=== PATIENT | female | born 1985 | race American Indian/Alaskan Native ===

== ENCOUNTER 2017-06-12 16:03 | Emergency (ER) | payer OTHER ==
[2017-06-12 16:32] LABS: Basophils % (Auto) 0.2 % (0.0-1.8); Eosinophils % (Auto) 1.2 % (0.0-4.3); Hematocrit 37.9 % (30.3-42.9); Hemoglobin 12.6 gm/dl (10.1-14.3); Mean Corpuscular HGB Conc 33 % (30-34); Mean Corpuscular Hemoglobin 29 pg (28-32); Mean Corpuscular Volume 88 fl (79-97); Platelet Count 226 K/mm3 (140-440); Red Blood Count 4.29 M/mm3 (3.65-5.03); Red Cell Distribution Width 16.3 % (13.2-15.2); White Blood Count 5.7 K/mm3 (4.5-11.0)
[2017-06-12 16:48] LABS: Alanine Aminotransferase 23 units/L (7-56); Albumin/Globulin Ratio 1.3 %; Alkaline Phosphatase 66 units/L (35-129); Anion Gap 17 mmol/L; BUN/Creatinine Ratio 12; Blood Urea Nitrogen 7 mg/dL (7-17); Calcium 8.7 mg/dL (8.4-10.2); Carbon Dioxide 27 mmol/L (22-30); Chloride 102.2 mmol/L (98-107); Glucose 102 mg/dL (65-100); Lipase 40 units/L (13-60); Potassium 3.8 mmol/L (3.6-5.0); Sodium 142 mmol/L (137-145); Total Protein 7.1 g/dL (6.3-8.2)
[2017-06-12 17:01] LABS: Bacteria,Urine 1+ /HPF (Negative); Bilirubin,Urine NEG (Negative); Blood,Urine MOD (Negative); Ketones,Urine NEG (Negative); Leukocyte Esterase,Urine LG (Negative); Mucus,Urine 3+ /HPF; Nitrite,Urine NEG (Negative)
[2017-06-13] MEDS ORDERED: REGLAN IV ONE (01:03)
[2017-06-13] MEDS ORDERED: NACL 0.9% 1000 ML 1,000 ML IV ONE (01:03)
[2017-06-13] MEDS ORDERED: FIORICET PO ONE (01:04)
--- NOTE | 2017-06-13 01:04 | Emergency Department Report ---
ED Abdominal Pain HPI - General Chief Complaint: Headache Stated Complaint: HEADACHE Time Seen by Provider: 06/13/17 00:28 Source: patient Mode of arrival: Ambulatory Limitations: No Limitations - History of Present Illness Initial Comments: 32-year-old female presents here with complaints of headaches 2 days. Headaches are worse in the morning upon awakening. They get worse when she lays supine. Associated blurred vision and nausea with vomiting. Patient also recalls having right lower quadrant pain. This has been going on for 2 weeks on and off. Her last normal menses was in 2016. Patient denies diarrhea , no cough,no runny nose, no fever MD Complaint: abdominal pain (right lower quadrant) -: Gradual, week(s) (2 weeks, on and off) Location: RLQ Radiation: none Migration to: no migration Severity scale (0 -10): 8 Quality: stabbing, sharp Consistency: intermittent Improves With: nothing Worsens With: nothing Associated Symptoms: nausea, vomiting, other (right-sided headaches. Headaches radiate to back of her neck right side). denies: diarrhea, fever, chills, constipation, dysuria, hematemesis, hematochezia, anorexia, syncope - Related Data Previous Rx's Medication Instructions Recorded Last Taken Type Amoxicillin/K Clav Tab [Augmentin 1 tab PO Q12HR #20 tab 06/13/17 Unknown Rx 875 mg] Butalb/Acetamin/Caff 50-325-40 2 tab PO Q6HR PRN #30 tab 06/13/17 Unknown Rx [Fioricet] Lactulose [Cephulac] 20 gm PO Q6HR #1 bottle 06/13/17 Unknown Rx Ondansetron [Zofran TAB] 4 mg PO Q8HR PRN #20 tablet 06/13/17 Unknown Rx Allergies Allergy/AdvReac Type Severity Reaction Status Date / Time No Known Allergies Allergy Verified 02/25/16 12:14 ED Review of Systems ROS: Stated complaint: HEADACHE Other details as noted in HPI Comment: All other systems reviewed and negative Constitutional: see HPI, malaise, weakness. denies: chills, diaphoresis, fever Eyes: vision change (blurred vision). denies: eye discharge ENT: denies: throat pain, dental pain, hearing loss, epistaxis Respiratory: denies: cough, orthopnea, shortness of breath, SOB with exertion, SOB at rest Cardiovascular: denies: chest pain, palpitations, dyspnea on exertion, edema, syncope Endocrine: no symptoms reported Gastrointestinal: abdominal pain (right lower quadrant abdominal pain), nausea, vomiting, constipation. denies: diarrhea, hematemesis, melena Genitourinary: denies: dysuria, frequency, hematuria Musculoskeletal: back pain. denies: joint swelling, arthralgia, myalgia Skin: denies: change in color, change in hair/nails, pruritus Neurological: headache, weakness. denies: numbness ED Past Medical Hx - Past Medical History Previous Medical History?: No - Surgical History Past Surgical History?: No - Social History Smoking Status: Never Smoker Substance Use Type: Alcohol - Medications Home Medications: Home Medications Medication Instructions Recorded Confirmed Last Taken Type Amoxicillin/K Clav Tab [Augmentin 1 tab PO Q12HR #20 tab 06/13/17 Unknown Rx 875 mg] Butalb/Acetamin/Caff 50-325-40 2 tab PO Q6HR PRN #30 tab 06/13/17 Unknown Rx [Fioricet] Lactulose [Cephulac] 20 gm PO Q6HR #1 bottle 06/13/17 Unknown Rx Ondansetron [Zofran TAB] 4 mg PO Q8HR PRN #20 tablet 06/13/17 Unknown Rx ED Physical Exam - General Limitations: No Limitations General appearance: alert, in distress ([id number] distress), other ( obese patient) - Head Head exam: Present: atraumatic, normocephalic, normal inspection - Eye Eye exam: Present: normal appearance, PERRL, EOMI. Absent: scleral icterus, conjunctival injection, nystagmus - ENT ENT exam: Present: normal exam, normal orophraynx, mucous membranes moist - Neck Neck exam: Present: normal inspection, full ROM. Absent: tenderness, meningismus, lymphadenopathy - Respiratory Respiratory exam: Present: normal lung sounds bilaterally. Absent: respiratory distress, wheezes, rales, chest wall tenderness, accessory muscle use, decreased breath sounds - Cardiovascular Cardiovascular Exam: Present: normal rhythm, tachycardia, normal heart sounds - GI/Abdominal GI/Abdominal exam: Present: soft, tenderness (right lower quadrant), guarding ( right lower quadrant), diminished bowel sounds. Absent: rebound, rigid, normal bowel sounds, hyperactive bowel sounds, hypoactive bowel sounds, organomegaly, mass, bruit, pulsatile mass - Rectal Rectal exam: Present: deferred - Extremities Exam Extremities exam: Present: normal inspection, full ROM, normal capillary refill. Absent: tenderness, pedal edema - Back Exam Back exam: Present: normal inspection, full ROM. Absent: CVA tenderness (L) - Neurological Exam Neurological exam: Present: alert, oriented X3, CN II-XII intact, motor sensory deficit ED Course Vital Signs 06/12/17 06/13/17 06/13/17 16:10 00:44 00:54 Temperature 98.4 F 98.5 F Pulse Rate 108 H 91 H Respiratory 16 20 20 Rate Blood Pressure 189/134 Blood Pressure 154/100 [Right] O2 Sat by Pulse 99 100 100 Oximetry 06/13/17 06/13/17 06/13/17 02:06 03:00 03:06 Temperature Pulse Rate 88 Respiratory 20 20 20 Rate Blood Pressure Blood Pressure 141/93 [Right] O2 Sat by Pulse 100 Oximetry ED Medical Decision Making - Lab Data Result diagrams: 06/12/17 16:19 06/12/17 16:19 - Radiology Data Radiology results: report reviewed, image reviewed Critical Care Time: No Critical care attestation.: If time is entered above; I have spent that time in minutes in the direct care of this critically ill patient, excluding procedure time. ED Disposition Clinical Impression: Hypertension, Urinary tract infection, Migraine headache, Constipation Disposition: - TO HOME OR SELFCARE Is pt being admited?: No Does the pt Need Aspirin: No Condition: Stable Instructions: Hypertension (ED), Urinary Tract Infection in Women (ED), Migraine Headache (ED) Additional Instructions: Follow with her primary care or return to ER if your problem gets worse. Less solids diet, comply with instructions and medications. Follow-up with your scheduled appointment to see your primary care in 1 week, for reevaluation of you blood pressure. Prescriptions: Amoxicillin/K Clav Tab [Augmentin 875 mg] 1 tab PO Q12HR #20 tab Butalb/Acetamin/Caff 50-325-40 [Fioricet] 2 tab PO Q6HR PRN #30 tab PRN Reason: Headache Lactulose [Cephulac] 20 gm PO Q6HR #1 bottle Ondansetron [Zofran TAB] 4 mg PO Q8HR PRN #20 tablet PRN Reason: Nausea Referrals: PRIMARY CARE, [Primary Care Provider] - 3-5 Days Time of Disposition: 05:48
[2017-06-13 02:07] LABS: Magnesium 1.9 mg/dL (1.7-2.3)
[2017-06-13] MEDS ORDERED: ROCEPHIN/NS 1 GM/50 ML 1 GM/50 ML BAG IV ONE (02:50)
[2017-06-13] MEDS ORDERED: NACL ONE (02:50)
--- NOTE | 2017-06-13 03:29 | Cat Scan Report ---
FINAL REPORT PROCEDURE: CT HEAD/BRAIN WO CON TECHNIQUE: Computerized tomography of the head was performed without contrast material. HISTORY: Headaches COMPARISON: No prior studies are available for comparison. FINDINGS: Skull and scalp: Normal. Paranasal sinuses: Normal. Ventricles and subarachnoid spaces: Normal. Cerebrum: No evidence of hemorrhage, acute infarction or mass . Cerebellum and brainstem: No evidence of hemorrhage, acute infarction or mass. Vasculature: Normal. Comments: None. IMPRESSION: Normal Examination
--- NOTE | 2017-06-13 03:36 | Cat Scan Report ---
FINAL REPORT PROCEDURE: CT ABDOMEN PELVIS W CON TECHNIQUE: Computerized axial tomography of the abdomen and pelvis was performed after the IV injection of iodinated nonionic contrast. HISTORY: RLQ pain COMPARISON: No prior studies are available for comparison. FINDINGS: Visualized lower thorax: No significant abnormality. Liver: Normal size and attenuation. Spleen: Normal size and attenuation. Gallbladder and biliary system: Normal. Pancreas: Normal. Adrenals: Normal. Kidneys: Normal. GI tract: Normal. Lymph nodes and mesentery: Normal. Vasculature: Normal. Bladder: Normal. Reproductive organs: Normal. Peritoneum: No free fluid. Musculoskeletal structures: No significant abnormality. Other: None. IMPRESSION: There is no appendicitis. The appendix is normal. Uterus and ovaries are unremarkable. There is no ascites, free air, abscess or adenopathy. There are no kidney stones. There are no ureteral stones. There is no hydronephrosis.
[2017-06-13 06:46] VITALS: BP 144/91
== END 2017-06-13 06:51 | disposition home or self-care (01) ==
LOC: ED 16:03
DX: I10 Essential (primary) hypertension (principal); G43.909 Migraine, unspecified, not intractable, without status migrainosus; N39.0 Urinary tract infection, site not specified; K59.00 Constipation, unspecified
CPT/HCPCS: 36415; 70450; 74177; 80053; 81001; 81025; 83690; 83735; 85025; 93005; 93010; 96361; 96365; 96366; 96375; 99284; J0696; J2765; J7030; Q9967

== ENCOUNTER 2018-02-12 13:29 | Emergency (ER) | payer SELFPAY ==
[2018-02-12] MEDS ORDERED: ULTRAM PO ONE (13:57)
--- NOTE | 2018-02-12 14:10 | Emergency Department Report ---
ED Lower Extremity HPI - General Chief Complaint: Fall Stated Complaint: LEG/KNEE PAIN FROM FALL Time Seen by Provider: 02/12/18 13:50 Source: patient Mode of arrival: Wheelchair Limitations: No Limitations - History of Present Illness Initial Comments: Patient 32-year-old female who presents for left knee plain states she fell [employer] last night time and up patient is afebrile her parents for last night now unable to bear weight states 810 left medial knee pain pain exacerbated by weightbearing pain relieved by offloading associated tingling swelling. there is no relieving factor MD Complaint: knee injury Onset/Timin -: days(s) Injury: Knee: Left Type of Injury: other (twisted ) Place: other Severity: moderate Severity scale (0 -10): 8 Improves With: nothing Worsens With: weight bearing, movement, palpation Context: fall, other (twisting ) Associated Symptoms: swelling, unable to bear weight - Related Data Previous Rx's Medication Instructions Recorded Last Taken Type Amoxicillin/K Clav Tab [Augmentin 1 tab PO Q12HR #20 tab 06/13/17 Unknown Rx 875 mg] Butalb/Acetamin/Caff 50-325-40 2 tab PO Q6HR PRN #30 tab 06/13/17 Unknown Rx [Fioricet] Lactulose [Cephulac] 20 gm PO Q6HR #1 bottle 06/13/17 Unknown Rx Ondansetron [Zofran TAB] 4 mg PO Q8HR PRN #20 tablet 06/13/17 Unknown Rx Cyclobenzaprine [Flexeril] 10 mg PO TID PRN #30 tablet 02/12/18 Unknown Rx Naproxen 500 mg PO BID #30 tablet 02/12/18 Unknown Rx Allergies Allergy/AdvReac Type Severity Reaction Status Date / Time No Known Allergies Allergy Verified 02/12/18 13:33 ED Review of Systems ROS: Stated complaint: LEG/KNEE PAIN FROM FALL Other details as noted in HPI Constitutional: denies: chills, fever Eyes: denies: eye pain, eye discharge, vision change ENT: denies: ear pain, throat pain Respiratory: denies: cough, shortness of breath, wheezing Cardiovascular: denies: chest pain, palpitations Endocrine: no symptoms reported Gastrointestinal: denies: abdominal pain, nausea, diarrhea Genitourinary: denies: urgency, dysuria, discharge Musculoskeletal: joint swelling, myalgia. denies: back pain, arthralgia Skin: denies: rash, lesions Neurological: denies: headache, weakness, paresthesias Psychiatric: denies: anxiety, depression Hematological/Lymphatic: denies: easy bleeding, easy bruising ED Past Medical Hx - Past Medical History Previous Medical History?: No - Surgical History Past Surgical History?: No - Social History Smoking Status: Never Smoker Substance Use Type: None - Medications Home Medications: Home Medications Medication Instructions Recorded Confirmed Last Taken Type Amoxicillin/K Clav Tab [Augmentin 1 tab PO Q12HR #20 tab 06/13/17 Unknown Rx 875 mg] Butalb/Acetamin/Caff 50-325-40 2 tab PO Q6HR PRN #30 tab 06/13/17 Unknown Rx [Fioricet] Lactulose [Cephulac] 20 gm PO Q6HR #1 bottle 06/13/17 Unknown Rx Ondansetron [Zofran TAB] 4 mg PO Q8HR PRN #20 tablet 06/13/17 Unknown Rx Cyclobenzaprine [Flexeril] 10 mg PO TID PRN #30 tablet 02/12/18 Unknown Rx Naproxen 500 mg PO BID #30 tablet 02/12/18 Unknown Rx ED Physical Exam - General Limitations: No Limitations General appearance: alert, in no apparent distress - Head Head exam: Present: atraumatic, normocephalic - Eye Eye exam: Present: normal appearance - ENT ENT exam: Present: mucous membranes moist - Neck Neck exam: Present: normal inspection, tenderness, full ROM. Absent: lymphadenopathy, thyromegaly - Respiratory Respiratory exam: Present: normal lung sounds bilaterally. Absent: respiratory distress - Cardiovascular Cardiovascular Exam: Present: regular rate, normal rhythm. Absent: systolic murmur, diastolic murmur, rubs, gallop - GI/Abdominal GI/Abdominal exam: Present: soft, normal bowel sounds - Rectal Rectal exam: Present: deferred - Extremities Exam Extremities exam: Present: tenderness (left anteriorl knee ), normal capillary refill, joint swelling. Absent: pedal edema, calf tenderness - Expanded Lower Extremity Exam Left Knee exam: Present: tenderness (left medial tenderness to palpation ), swelling (left anterior knee ), ecchymosis, erythema, effusion, pain w/ pronation/ supination, pain/laxity with valgus. Absent: abrasion, laceration, deformity, crepidus, dislocation, posterior draw sign, pain/laxity with varus, full knee extension (pass extension only ) Lower Leg exam: Present: full ROM. Absent: tenderness, swelling, abrasion, laceration, ecchymosis, deformity, crepidus, dislocation, erythema, palpable cord, Myah's sign Ankle exam: Present: normal inspection, full ROM Foot/Toe exam: Present: normal inspection. Absent: full ROM Neuro vascular tendon exam: Present: no vascular compromise. Absent: pulse deficit, abnormal cap refill, motor deficit, sensory deficit, tendon deficit, extremity cold to touch, pallor, abnormal 2-point discrimination, decreased fine /light touch, foot drop, peroneal nerve deficit, significant pain with passive ROM of distal joint Gait: Negative: unable to bear weight 1 - left medial tenderness mild swelling no deformity pain with rotation - Back Exam Back exam: Present: normal inspection, full ROM. Absent: tenderness, CVA tenderness (R), CVA tenderness (L), muscle spasm, paraspinal tenderness, vertebral tenderness, rash noted - Neurological Exam Neurological exam: Present: alert, oriented X3, CN II-XII intact, reflexes normal - Psychiatric Psychiatric exam: Present: normal affect, normal mood - Skin Skin exam: Present: warm, dry, intact, normal color. Absent: rash ED Course Vital Signs 02/12/18 13:33 Temperature 98.9 F Pulse Rate 105 H Respiratory 20 Rate Blood Pressure 162/113 O2 Sat by Pulse 99 Oximetry ED Lower Extremity MDM - Radiology Data Radiology results: report reviewed, image reviewed no fracture no soft tissue abnormality - Medical Decision Making No fracture no soft tissue abnormality, pain is improved with ultram. plan knee immobilizer crutches NSAIDs muscle relaxants and follow-up Orthopedics in 2 -[address] Dominguez patient verbalizes understanding and agreement with discharge plan will be discharged home in stable condition at this time. Critical care attestation.: If time is entered above; I have spent that time in minutes in the direct care of this critically ill patient, excluding procedure time. ED Disposition Clinical Impression: Knee strain Qualifiers: Encounter type: initial encounter Laterality: left Qualified Code(s): S86.912A - Strain of unspecified muscle(s) and tendon(s) at lower leg level, left leg, initial encounter Disposition: TO HOME OR SELFCARE Is pt being admited?: No Does the pt Need Aspirin: No Condition: Good Instructions: Knee Immobilizer (ED), Crutch Instructions (ED), Knee Sprain (ED) Prescriptions: Cyclobenzaprine [Flexeril] 10 mg PO TID PRN #30 tablet PRN Reason: Muscle Spasm Naproxen 500 mg PO BID #30 tablet Referrals: PRIMARY CARE, [Primary Care Provider] - 3-5 Days Forms: Work/School Release Form(ED) Time of Disposition: 14:53
--- NOTE | 2018-02-12 15:05 | XRay Report ---
FINAL REPORT EXAM: XR KNEE 3V LT HISTORY: fall non weight bearing TECHNIQUE: Two views of the left knee PRIORS: None. FINDINGS: There is no evidence of acute fracture. There is no evidence of joint dislocation. There is no evidence of joint effusion. There is no significant focal osseous lesions seen. IMPRESSION: There is no acute abnormality identified.
[2018-02-12 15:28] VITALS: BP 135/87
== END 2018-02-12 15:26 | disposition home or self-care (01) ==
LOC: ED 13:29
DX: S86.912A Strain of unspecified muscle(s) and tendon(s) at lower leg level, left leg, initial encounter (principal); W19.XXXA Unspecified fall, initial encounter; Y93.89 Activity, other specified; Y99.8 Other external cause status; Y92.89 Other specified places as the place of occurrence of the external cause

== ENCOUNTER 2018-02-16 09:56 | Emergency (ER) | payer SELFPAY ==
[2018-02-16 11:24] LABS: Basophils % (Auto) 0.3 % (0.0-1.8); Eosinophils # (Auto) 0.1 K/mm3 (0.0-0.4); Eosinophils % (Auto) 1.1 % (0.0-4.3); Hematocrit 35.2 % (30.3-42.9); Hemoglobin 11.3 gm/dl (10.1-14.3); Lymphocytes # (Auto) 1.5 K/mm3 (1.2-5.4); Lymphocytes % (Auto) 25.9 % (13.4-35.0); Mean Corpuscular HGB Conc 32 % (30-34); Mean Corpuscular Hemoglobin 29 pg (28-32); Mean Corpuscular Volume 91 fl (79-97); Monocytes # (Auto) 0.4 K/mm3 (0.0-0.8); Monocytes % (Auto) 6.5 % (0.0-7.3); Platelet Count 270 K/mm3 (140-440); Red Blood Count 3.86 M/mm3 (3.65-5.03); Red Cell Distribution Width 14.9 % (13.2-15.2)
[2018-02-16 11:35] LABS: Bilirubin,Urine NEG (Negative); Blood,Urine NEG (Negative); Color,Urine Yellow (Yellow); Mucus,Urine 3+ /HPF; Protein,Urine <15 mg/dL mg/dL (Negative); Urobilinogen,Urine < 2.0 mg/dL (<2.0)
[2018-02-16 11:35] LABS: Alanine Aminotransferase 17 units/L (7-56); Albumin 3.7 g/dL (3.9-5); BUN/Creatinine Ratio 18; Blood Urea Nitrogen 9 mg/dL (7-17); Calcium 8.9 mg/dL (8.4-10.2); Hemolysis Index 4; Lipase 25 units/L (13-60)
--- NOTE | 2018-02-16 12:04 | Emergency Department Report ---
ED Abdominal Pain HPI - General Chief Complaint: Abdominal Pain Stated Complaint: PAIN IN LOWER RT SIDE Time Seen by Provider: 02/16/18 11:47 Source: patient Mode of arrival: Wheelchair Limitations: No Limitations - History of Present Illness Initial Comments: Ms Thomas is a 32 year-old woman without PMH who presents with abdominal pain. Pain in her right lower abdomen since last night. Pain is sharp and radiates to her R flank. Perhaps some white vaginal discharge. LMP January 01. No vaginal bleeding. No fever. No cough. Was seen in ED tuesday for fall she sustained Tuesday night. No fractures. MD Complaint: abdominal pain -: Sudden Location: RLQ Radiation: R flank Severity: moderate Quality: sharp Consistency: constant Improves With: nothing Worsens With: nothing - Related Data LMP Date: 01/01/18 Previous Rx's Medication Instructions Recorded Last Taken Type Amoxicillin/K Clav Tab [Augmentin 1 tab PO Q12HR #20 tab 06/13/17 Unknown Rx 875 mg] Butalb/Acetamin/Caff 50-325-40 2 tab PO Q6HR PRN #30 tab 06/13/17 Unknown Rx [Fioricet] Lactulose [Cephulac] 20 gm PO Q6HR #1 bottle 06/13/17 Unknown Rx Ondansetron [Zofran TAB] 4 mg PO Q8HR PRN #20 tablet 06/13/17 Unknown Rx Cyclobenzaprine [Flexeril] 10 mg PO TID PRN #30 tablet 02/12/18 Unknown Rx Naproxen 500 mg PO BID #30 tablet 02/12/18 Unknown Rx Allergies Allergy/AdvReac Type Severity Reaction Status Date / Time No Known Allergies Allergy Verified 02/12/18 13:33 ED Review of Systems ROS: Stated complaint: PAIN IN LOWER RT SIDE Other details as noted in HPI Comment: All other systems reviewed and negative ED Past Medical Hx - Past Medical History Previous Medical History?: Yes Hx Hypertension: Yes (no meds) Additional medical history: Fall - Surgical History Past Surgical History?: No - Social History Smoking Status: Never Smoker Substance Use Type: Alcohol - Medications Home Medications: Home Medications Medication Instructions Recorded Confirmed Last Taken Type Amoxicillin/K Clav Tab [Augmentin 1 tab PO Q12HR #20 tab 06/13/17 Unknown Rx 875 mg] Butalb/Acetamin/Caff 50-325-40 2 tab PO Q6HR PRN #30 tab 06/13/17 Unknown Rx [Fioricet] Lactulose [Cephulac] 20 gm PO Q6HR #1 bottle 06/13/17 Unknown Rx Ondansetron [Zofran TAB] 4 mg PO Q8HR PRN #20 tablet 06/13/17 Unknown Rx Cyclobenzaprine [Flexeril] 10 mg PO TID PRN #30 tablet 02/12/18 Unknown Rx Naproxen 500 mg PO BID #30 tablet 02/12/18 Unknown Rx ED Physical Exam - General Limitations: No Limitations General appearance: alert, in no apparent distress - Head Head exam: Present: atraumatic, normocephalic - Eye Eye exam: Present: normal appearance, PERRL, EOMI - ENT ENT exam: Present: normal exam, normal orophraynx - Neck Neck exam: Present: normal inspection. Absent: tenderness - Respiratory Respiratory exam: Present: normal lung sounds bilaterally. Absent: respiratory distress, wheezes, rales - Cardiovascular Cardiovascular Exam: Present: normal rhythm, tachycardia, normal heart sounds - GI/Abdominal GI/Abdominal exam: Present: soft, other (RLQ ttp). Absent: distended, guarding , rebound - External exam: Present: normal external exam. Absent: erythema, swelling, lesions, bleeding Speculum exam: Present: normal speculum exam. Absent: erythema, vaginal discharge, cervical discharge, vaginal bleeding, foreign body Bi-manual exam: Present: normal bi-manual exam. Absent: cervical motion tendernes, adnexal tenderness, adnexal mass, uterine tenderness - Extremities Exam Extremities exam: Present: normal inspection, full ROM, tenderness, other (Mild bilateral knee ttp, no swelling, no bruising. Band-aids on bilaterally, shallow abrasions) - Back Exam Back exam: Present: normal inspection. Absent: tenderness, CVA tenderness (R), CVA tenderness (L) - Neurological Exam Neurological exam: Present: alert, altered, oriented X3 - Skin Skin exam: Present: warm, dry, intact ED Course Vital Signs 02/16/18 02/16/18 02/16/18 10:01 11:47 11:57 Temperature 98.7 F Pulse Rate 108 H Respiratory 18 Rate Blood Pressure 161/111 O2 Sat by Pulse 99 98 100 Oximetry 02/16/18 02/16/18 12:01 16:24 Temperature Pulse Rate 109 H 82 Respiratory 11 L Rate Blood Pressure 147/98 138/98 O2 Sat by Pulse 100 Oximetry ED Medical Decision Making - Lab Data Result diagrams: 02/16/18 10:39 02/16/18 10:39 Lab Results 02/16/18 02/16/18 02/16/18 Range/Units 10:39 10:39 10:39 WBC 5.9 (4.5-11.0) K/mm3 RBC 3.86 (3.65-5.03) M/mm3 Hgb 11.3 (10.1-14.3) gm/dl Hct 35.2 (30.3-42.9) % MCV 91 (79-97) fl MCH 29 (28-32) pg MCHC 32 (30-34) % RDW 14.9 (13.2-15.2) % Plt Count 270 (140-440) K/mm3 Lymph % (Auto) 25.9 (13.4-35.0) % Pettis % (Auto) 6.5 (0.0-7.3) % Eos % (Auto) 1.1 (0.0-4.3) % Baso % (Auto) 0.3 (0.0-1.8) % Lymph # 1.5 (1.2-5.4) K/mm3 Pettis # 0.4 (0.0-0.8) K/mm3 Eos # 0.1 (0.0-0.4) K/mm3 Baso # 0.0 (0.0-0.1) K/mm3 Seg Neutrophils % 66.2 (40.0-70.0) % Seg Neutrophils # 3.9 (1.8-7.7) K/mm3 Sodium 138 (137-145) mmol/L Potassium 3.8 (3.6-5.0) mmol/L Chloride 102.5 (98-107) mmol/L Carbon Dioxide 23 (22-30) mmol/L Anion Gap 16 mmol/L BUN 9 (7-17) mg/dL Creatinine 0.5 L (0.7-1.2) mg/dL Estimated GFR > 60 ml/min BUN/Creatinine Ratio 18 % Glucose 91 (65-100) mg/dL Calcium 8.9 (8.4-10.2) mg/dL Total Bilirubin 0.30 (0.1-1.2) mg/dL AST 17 (5-40) units/L ALT 17 (7-56) units/L Alkaline Phosphatase 54 (35-129) units/L Total Protein 7.0 (6.3-8.2) g/dL Albumin 3.7 L (3.9-5) g/dL Albumin/Globulin Ratio 1.1 % Lipase 25 (13-60) units/L HCG, Quant 7187 H (0-4) mIU/mL Urine Color (Yellow) Urine Turbidity (Clear) Urine pH (5.0-7.0) Ur Specific [place] (1.003-1.030) Urine Protein (Negative) mg/dL Urine Glucose (UA) (Negative) mg/dL Urine Ketones (Negative) mg/dL Urine Blood (Negative) Urine Nitrite (Negative) Urine Bilirubin (Negative) Urine Urobilinogen (<2.0) mg/dL Ur Leukocyte Esterase (Negative) Urine WBC (Auto) (0.0-6.0) /HPF Urine RBC (Auto) (0.0-6.0) /HPF U Epithel Cells (Auto) (0-13.0) /HPF Urine Mucus /HPF / Range/Units Unknown WBC (4.5-11.0) K/mm3 RBC (3.65-5.03) M/mm3 Hgb (10.1-14.3) gm/dl Hct (30.3-42.9) % MCV (79-97) fl MCH (28-32) pg MCHC (30-34) % RDW (13.2-15.2) % Plt Count (140-440) K/mm3 Lymph % (Auto) (13.4-35.0) % Pettis % (Auto) (0.0-7.3) % Eos % (Auto) (0.0-4.3) % Baso % (Auto) (0.0-1.8) % Lymph # (1.2-5.4) K/mm3 Pettis # (0.0-0.8) K/mm3 Eos # (0.0-0.4) K/mm3 Baso # (0.0-0.1) K/mm3 Seg Neutrophils % (40.0-70.0) % Seg Neutrophils # (1.8-7.7) K/mm3 Sodium (137-145) mmol/L Potassium (3.6-5.0) mmol/L Chloride (98-107) mmol/L Carbon Dioxide (22-30) mmol/L Anion Gap mmol/L BUN (7-17) mg/dL Creatinine (0.7-1.2) mg/dL Estimated GFR ml/min BUN/Creatinine Ratio % Glucose (65-100) mg/dL Calcium (8.4-10.2) mg/dL Total Bilirubin (0.1-1.2) mg/dL AST (5-40) units/L ALT (7-56) units/L Alkaline Phosphatase (35-129) units/L Total Protein (6.3-8.2) g/dL Albumin (3.9-5) g/dL Albumin/Globulin Ratio % Lipase (13-60) units/L HCG, Quant (0-4) mIU/mL Urine Color Yellow (Yellow) Urine Turbidity Clear (Clear) Urine pH 5.0 (5.0-7.0) Ur Specific [place] 1.028 (1.003-1.030) Urine Protein <15 mg/dl (Negative) mg/dL Urine Glucose (UA) Neg (Negative) mg/dL Urine Ketones Neg (Negative) mg/dL Urine Blood Neg (Negative) Urine Nitrite Neg (Negative) Urine Bilirubin Neg (Negative) Urine Urobilinogen < 2.0 (<2.0) mg/dL Ur Leukocyte Esterase Neg (Negative) Urine WBC (Auto) 2.0 (0.0-6.0) /HPF Urine RBC (Auto) 4.0 (0.0-6.0) /HPF U Epithel Cells (Auto) 3.0 (0-13.0) /HPF Urine Mucus 3+ /HPF - Radiology Data Radiology results: report reviewed - Medical Decision Making Ms Thomas is a 32 year-old woman without PMH who presents with abdominal pain and positive home test. Pain for 1 day. Endorses constipation. Seen in ED tuesday for fall, did not hit stomach when she fell Tuesday night. Hypertensive on arrival. Sounds like she has had HTN in the past as well. Exam with mild RLQ ttp. No rebound, no guarding. Pelvic wnl. DDX: ectopic vs constipation vs preeclampsia vs appendicitis vs UTI vs pyelo. Labs wnl. HCG 7000. Wet prep neg. UA clean. Pelvic US with likely 6 week IUP, but too early to tell. BP now 135/90. Normal LFTs. Normal WBC, mild ttp. Low suspicion of appendicitis. Will give return precautions for this. Spoke with WASHER MACHINE, recommend starting labetalol 200mg BID. Giving 1L NS for mild tachycardia. HR now 103. Giving WASHER MACHINE f/u urgently. Home with stool softener, labetalol, PNVs, care instructions and return precautions. Critical care attestation.: If time is entered above; I have spent that time in minutes in the direct care of this critically ill patient, excluding procedure time. ED Disposition Clinical Impression: Abdominal pain Qualifiers: Abdominal location: right lower quadrant Qualified Code(s): R10.31 - Right lower quadrant pain Qualifiers: Weeks of gestation: less than 8 weeks Qualified Code(s): Z3A.01 - Less than 8 weeks gestation of Disposition: DC- TO HOME OR SELFCARE Is pt being admited?: No Does the pt Need Aspirin: No Condition: Stable Instructions: Abdominal Pain (ED), (ED), Hypertension (ED) Referrals: PRIMARY CARE, [Primary Care Provider] - 3-5 Days
--- NOTE | 2018-02-16 14:35 | Ultrasound Report ---
ULTRASOUND OB LESS THAN 14 WEEKS FETUS ULTRASOUND OB TRANSVAGINAL HISTORY: Right lower quadrant abdominal pain during . COMPARISON: None. TECHNIQUE: Transabdominal and transvaginal ultrasound with color doppler interrogation. FINDINGS: Uterus: The uterus measures 8.4 x 5.0 x 6.0 cm. No uterine mass. The cervix is unremarkable. Endometrium: An intrauterine gestational sac containing a small yolk sac is identified. Average diameter measures 11.6 mm which correlates with a 6 week, 0 day . No pole or heart tones are identified at this time. No subchorionic hemorrhage. Right ovary: 3.6 x 2.2 x 2.0 cm. No focal abnormality. Left ovary: 3.1 x 2.7 x 2.7 cm. A 1.9 cm slightly complex cyst is identified in the left ovary. No pelvic fluid or mass is identified. Normal color doppler interrogation. IMPRESSION: An intrauterine gestational sac containing only a yolk sac is identified. No pole or heart tones are detected. This could represent a normal very early or a blighted ovum. Close interval followup is recommended. Slightly complex left ovarian cyst.
[2018-02-16] MEDS ORDERED: NACL 0.9% 1000 ML 1,000 ML IV ONE (15:12)
[2018-02-16] MEDS ORDERED: NORMODYNE PO ONE (16:00)
[2018-02-16 17:09] VITALS: BP 155/99
[2018-02-17 01:27] LABS: HCG Qualitative,Urine Positive (Negative)
== END 2018-02-16 17:09 | disposition home or self-care (01) ==
LOC: ED 09:56
DX: O26.891 Other specified pregnancy related conditions, first trimester (principal); R10.31 Right lower quadrant pain; I10 Essential (primary) hypertension; Z3A.01 Less than 8 weeks gestation of pregnancy
CPT/HCPCS: 36415; 76801; 76817; 80053; 81001; 81025; 83690; 84702; 85025; 87210; 87591; 99284; J7030

== ENCOUNTER 2019-02-24 14:04 | Emergency (ER) | payer OTHER ==
--- NOTE | 2019-02-24 15:09 | Event Note ---
ED Screening Note Date of service: 02/24/19 Time: 15:07 ED Screening Note: This is a 33 y.o. F. that presents to the ER with URI symptoms. PMH of gestational HTN Patient reports congestion, sinus pressure, cough, and left ear pain. This initial assessment/diagnostic orders/clinical plan/treatment(s) is/are subject to change based on patients health status, clinical progression and re- assessment by fellow clinical providers in the ED. Further treatment and workup at subsequent clinical providers discretion. Patient/guardian urged not to elope from the ED as their condition may be serious if not clinically assessed and managed. Initial orders include: ACC for further evaluation.
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
[2019-02-24] MEDS ORDERED: DECADRON IM STA (17:47)
[2019-02-24] MEDS ORDERED: TYLENOL #3 PO ONE (17:47)
[2019-02-24 17:56] VITALS: BP 156/100
== END 2019-02-24 18:44 | disposition home or self-care (01) ==
LOC: ED 14:04
DX: J01.10 Acute frontal sinusitis, unspecified (principal); B96.89 Other specified bacterial agents as the cause of diseases classified elsewhere; J01.00 Acute maxillary sinusitis, unspecified; J02.9 Acute pharyngitis, unspecified; I10 Essential (primary) hypertension; R51 Headache; Z79.899 Other long term (current) drug therapy
CPT/HCPCS: 96372; 99282; J1100